=== PATIENT | female | born 2005 | race Caucasian/White ===

== ENCOUNTER 2023-10-16 17:43 | Emergency (ER) | payer MEDICAID, SELFPAY ==
[2023-10-16 17:47] VITALS: BP 134/83; PULSE 77; RESP 18; TEMP 36.8; O2SAT 98; BMI 23.2
--- NOTE | 2023-10-16 18:15 | ED_ITS ---
HPI - General Adult General Chief complaint: Nausea/Vomiting/Diarrhea Stated complaint: vomiting Time Seen by Provider: 10/16/23 18:02 Source: patient Mode of arrival: walk-in Limitations: no limitations History of Present Illness HPI narrative: 17-year-old female presents to the ER with her mother, works as a hairdresser. Chief complaint is sore throat that started 3 days ago. She did have an episode of vomiting yesterday that has since subsided, mild nausea. She denies chance of with her last menstrual cycle last week. Mother states she personally had vomiting a week ago that resolved in 24 hours as well. She denies diarrhea. Patient Appears in no distress, speaking with clear voice. She denies excessive fatigue. She denies any known ill exposures but states she treats multiple clients. Patient did not take any Tylenol today. She denies any cough. Patient concerned noting swollen tonsils and white patches . Onset (ago): day(s) (3) Pain Consistency: Reports constant Treatments prior to arrival: Reports none Related Data Previous Rx's Medication Instructions Recorded ondansetron HCl 4 mg tablet 4 mg PO Q6H PRN nausea and 10/16/23 vomiting #12 tabs Allergies Allergy/AdvReac Type Severity Reaction Status Date / Time No Known Drug Allergies Allergy Verified 10/16/23 17:47 Review of Systems ROS Constitutional Reports: fever (subjective); Denies: chills Eyes Denies: change in vision or blurry vision Ears, nose, mouth, and throat Reports: throat pain; Denies: neck pain or vertigo Cardiovascular Denies: chest pain, palpitations or shortness of breath when lying down Respiratory Reports: cough; Denies: shortness of breath or wheezing Gastrointestinal Reports: nausea and vomiting; Denies: abdominal pain or heartburn Genitourinary Denies: painful urination Musculoskeletal Denies: back pain or extremity pain Integumentary/Breast Denies: rash, itching or redness Neurological Denies: headache or numbness in extremities Psychiatric Denies: anxiety Allergic/Immunologic Denies: hives PFSH PFSH Social History Smoking status: Current some day smoker Exam Narrative Exam Narrative: Nurses notes and vital signs reviewed and patient is not hypoxic. General: The patient appears well and in no apparent distress. Patient is resting comfortably on cart. Skin: Warm, dry, no pallor noted.No evidence of rash Head: Normocephalic, atraumatic Neck: Supple, trachea mid-line, no tenderness, no lymphadenopathy Eye: Pupils are equal, round and reactive to light, EOMI Ears, Nose, Mouth, and Throat: TM are clear, normal light reflex, oral mucosa is moist + posterior oropharynx erythema, + exudates 1+ tonsillar hypertrophy, uvula is mid-line Cardiovascular: Regular Rate and Rhythm Respiratory: Patient is in no distress, no accessory muscle use, lungs are clear to auscultation, no wheezing, rales or rhonchi. Chest Wall: no tenderness Back: non-tender, no CVA tenderness Musculoskeletal: normal ROM, no tenderness, no swelling GI: Normal bowel sounds, no tenderness to palpation, no splenic tenderness , no masses appreciated. No rebound, guarding, or rigidity noted. Neurological: A&O x4 Psychiatric: Cooperative Constitutional Vital Signs, click to edit/add: Last Vital Signs Temp 98.3 F 10/16/23 17:47 Pulse 77 10/16/23 17:47 Resp 18 10/16/23 17:47 BP 134/83 10/16/23 17:47 Pulse Ox 98 10/16/23 17:47 Course Vital Signs Vital signs: Vital Signs Temperature 98.3 F 10/16/23 17:47 Pulse Rate 77 10/16/23 17:47 Respiratory Rate 18 10/16/23 17:47 Blood Pressure 134/83 10/16/23 17:47 Pulse Oximetry 98 10/16/23 17:47 Temperature 98.3 F 10/16/23 17:47 Pulse Rate 77 10/16/23 17:47 Respiratory Rate 18 10/16/23 17:47 Blood Pressure 134/83 10/16/23 17:47 Pulse Oximetry 98 10/16/23 17:47 Medical Decision Making MDM Narrative Medical decision making narrative: Patient presents with clinical picture concerning for strep throat, rapid strep test performed. Patient given Tylenol and Zofran for symptoms. Rapid strep test was negative, throat culture pending. We discussed the need to get checked for mono if symptoms persist and culture comes back negative. Mother and patient verbalized understanding, work note given for tomorrow. Alfred costa was treated with Decadron p.o. risks and benefits discussed, patient will continue with [id number] Tylenol Motrin dosing. A prescription of Zofran will be sent in case nausea returns but patient able to tolerate p.o. liquids. The patient is to followup with primary care physician in next 2-3 days or to return to the emergency department should any of the signs or symptoms worsen or new symptoms develop. Patient had questions answered. The patient agrees with the following Diagnosis and Treatment plan and the patient will be discharged home. Lab Data Lab results reviewed: Yes I reviewed the patient's lab results Labs: Lab Results 10/16/23 Range/Units 17:48 Streptococcus Screen Negative Discharge Plan Discharge Chief Complaint: Nausea/Vomiting/Diarrhea Clinical Impression: Acute viral pharyngitis Patient Disposition: Home, Self-Care Time of Disposition Decision: 18:54 Condition: Good Prescriptions / Home Meds: New ondansetron HCl 4 mg tablet 4 mg PO Q6H PRN (Reason: nausea and vomiting) Qty: 12 0RF Instructions: Pharyngitis (ED) Additional Instructions: Consider MONO test if symptoms persist and throat cult neg. Stand Alone Forms: Portal Instructions Referrals: Shobha Rebolledo NP [Primary Care Provider] - 1 week
[2023-10-16] MEDS: ACETAMINOPHEN 500 MG TABLET 1000 MG PO (18:19)
[2023-10-16] MEDS: ONDANSETRON 4 MG RAPDIS TABLET SL (18:19)
[2023-10-16 18:21] LABS: Internal Control Within Normal Limits; Strep A Antigen Screen Negative
[2023-10-16] MEDS: DEXAMETHASONE SOD PHOS 10 MG/ML VIAL PO (19:05)
== END 2023-10-16 19:19 | disposition home or self-care (01) ==
PROVIDERS: Emergency Provider Emergency Medicine; PCP Nurse Practitioner
DX: J02.9 Acute pharyngitis, unspecified (principal); F17.210 Nicotine dependence, cigarettes, uncomplicated
CPT/HCPCS: 87070; 87880; 99283; J1100; Q0162